=== PATIENT | male | born 1970 | race Caucasian/White ===

== ENCOUNTER 2018-08-19 13:23 | Observation (INO) | payer OTHER ==
[~2018-08-19] VITALS: Ht 180.3 cm; Wt 118.8 kg
--- NOTE | ~2018-08-19 | O ---
[facility] [place] [address] OPERATIVE REPORT Name: NATALIE LEIGH Room #: 431-P [facility] M..#: [id number] Admission: 08/19/18 ������������������ Attend Phys: Clemente Downey MD Discharge: ������������������ Date of : 72 Report #: [id number] THIS REPORT FOR: //name// CC: ZULEIKA Downey DATE OF SERVICE: 08/19/2018 PREOPERATIVE DIAGNOSIS: Cholecystitis with cholelithiasis. POSTOPERATIVE DIAGNOSIS: Cholecystitis with cholelithiasis. Stone stuck in the cystic duct. PROCEDURE PERFORMED: Laparoscopic cholecystectomy with intraoperative cholangiogram. SURGEON: Clemente Downey M.D. ANESTHESIA: General anesthesia. COMPLICATIONS: None. ESTIMATED BLOOD LOSS: 5 mL FINDINGS: There was a small stone within the cystic duct. Common bile duct does not show any obvious stone. Gallbladder shows mild edema and it is decompressed. Multiple stones found in the gallbladder. DESCRIPTION OF PROCEDURE: With the patient under general anesthesia, abdomen was prepped and draped in sterile fashion. IV antibiotic was administered. Timeout was performed. 0.25% Marcaine was used to anesthetize the skin and subcutaneous tissue. A curvilinear incision was made above the umbilicus. Fascia identified. Fascia was grasped with hemostat. Fascia was then opened under visualization. 0 Vicryl suture placed on the fascia edges. Veress needle was then placed through the peritoneum. Abdominal cavity was insufflated with CO2. After creating pneumoperitoneum pressure of 13, a 11 mm trocar was placed into the pneumoperitoneum. No harm to underlying tissue. Two 5 mm trocars were placed in the right upper quadrant and the third 5 mm trocar was placed in the right epigastrium. The patient was tilted with the right side up and head down. The appendix was found and it was not inflamed. The patient was then placed in the reverse Trendelenburg position. Gallbladder was identified as the CT showed the gallbladder was decompressed. There is quite a bit of fat over the proximal part of the gallbladder. Common bile duct was also obscured by fat. Dissection was carried through the fat tissue. The cystic duct was then isolated. The cystic duct was mildly dilated. The cystic duct to the gallbladder junction was [facility] [address] [place] [address] OPERATIVE REPORT Name: NATALIE LEIGH Room #: 431-P [facility] M.R.#: [id number] Admission: 08/19/18 ������������������ Attend Phys: Clemente Downey MD Discharge: ������������������ Date of : 72 Report #: [id number] visualized. A clip was placed in the cystic duct gallbladder junction. Opening was made in the cystic duct. After the opening was made, there was a stone identified in the cystic duct and this was milked out and about 2-3 mm size stone was removed. Then, there was another smaller piece of stone that was also evacuated. With further dissecting and squeezing the cystic duct, I did not get any further stone out, really not much bile came out either. Cholangiogram catheter was then placed. I was only able to get the tip of the catheter in the cystic duct. This was held with a clip. Fluoroscopic cholangiogram was obtained. Initial run did show good filling of the common bile duct and a little bit of the common hepatic duct was visualized. The patient did have some extravasation at the cannulation site. There was also dye spillage in the duodenum. A repeat injection was performed at this time with the patient in a reverse Trendelenburg position. I was able to visualize partially the hepatic ducts. The anatomy appears to be normal without obvious filling defect. The contrast preferentially went down to the duodenum and lack of filling of the hepatic ducts. The cholangiogram catheter was identified in the cystic duct. No harm to common duct. The cholangiogram catheter was then removed. The proximal cystic duct was then clipped x 2. The cystic duct was then divided. Cystic artery was then identified. This was isolated, clipped x 2 proximally and distally and then divided. Small posterior branch was also found. This was clipped x 2 and then cauterized. Gallbladder was freed from the liver bed without difficulty. During the dissection of the gallbladder off the liver bed, there was mild edema in the gallbladder wall. Gallbladder was placed in a specimen bag, retrieved through the infraumbilical port. Multiple blackish stones, like the one that was in the cystic duct, were found. There was also small yellowish cholesterol material stones identified, also cholesterolosis. The specimen was sent to pathology. Irrigation was performed. Liver bed was hemostatic. Irrigation was aspirated out. CO2 was evacuated as much as possible. The fascia defect at the 11 mm trocar above the umbilicus was closed with mqyyeu-io-lvmht 0 Vicryl at the level of the fascia. Bqpxua-ax-hrtqn x 2 was performed. Skin was irrigated. Skin was closed with 5-0 PDS. Steri-Strip applied to all trocar sites. Band-Aid was used for dressing. The patient was awakened and taken to the recovery room. ��������������������������������������������� ���������������������������������������� By: ��������������������������������������������� 2223 0000 Clemente Downey MD /nt
[2018-08-19 11:58] LABS: ABSOLUTE NEUTROPHILS 5.2 thou/uL (1.4-8.2); BASOPHILS 0.9 % (0.0-2.0); HEMATOCRIT 44.5 % (42.0-52.0); HEMOGLOBIN 15.2 gm/dL (14.0-18.0); LYMPHOCYTES 35.2 % (24.0-44.0); MCH 30.8 pg (26.0-34.0); MCHC 34.2 g/dL (28.0-37.0); MCV 90.2 fL (80.0-100.0); MONOCYTES 7.2 % (1.0-8.0); PLATELET COUNT 324 thou/uL (150-400); POLYS 54.7 % (36.0-66.0); RBC 4.94 mil/uL (4.50-6.00); RDW 14.1 % (10.5-14.5); WBC 9.5 thou/uL (4.0-11.0)
[2018-08-19 12:13] LABS: ALBUMIN 3.9 g/dL (3.4-5.0); CALCIUM 10.2 mg/dL (8.5-10.1); CREATININE 0.9 mg/dL (0.7-1.3); POTASSIUM 4.4 mmol/L (3.5-5.1); TOTAL BILIRUBIN 0.4 mg/dL (<0.1-1.0); TOTAL PROTEIN 7.3 g/dL (6.4-8.2)
[2018-08-19 14:00] VITALS: BP 175/96
--- NOTE | 2018-08-19 18:47 | NUR ---
RECEIVED PT AROUND 1809 FROM PACU, PT IS A&0X4, ACCOMPANIED BY SPOUSE, FOUND 'MELISSA HOLLAND' FOR HIS 02, DOESN'T WEAR 02 AT HOME, ON 1/5L, RT TX, CPAP HS, HAS HIS OWN HERE AT HOSPITAL, ON CLEAR LIQUIDS, INGESTED W/O ANY UNTOWARD EFFECT, AMB INDEPENDENTLY. ENCOURAGED HIM TO USE CALL LIGHT FOR ANY NEEDS
[2018-08-19 20:00] VITALS: BP 158/92
[2018-08-19] MEDS ORDERED: LISINOPRIL40 MG PO (20:54)
[2018-08-19] MEDS ORDERED: LIPITOR80 MG PO (20:55)
[2018-08-19] MEDS ORDERED: NORTRIPTYLINE H50 MG PO (20:56)
[2018-08-19] MEDS ORDERED: ASPIR 8181 MG PO (20:57)
[2018-08-19] MEDS ORDERED: NORVASC10 MG PO (20:58)
[2018-08-19] MEDS ORDERED: FISH OIL 1,001000 M2 PO (20:59)
[2018-08-19] MEDS ORDERED: BRAIN MIGHT-DH1 EACH PO (21:00)
[2018-08-19] MEDS ORDERED: CENTRUM SILVER1 EAC2 PO (21:01)
[2018-08-19] MEDS ORDERED: GLUCOSAMINE HC500 MG PO (21:01)
[2018-08-19] MEDS ORDERED: COLACE100 MG PO (21:02)
[2018-08-20 06:00] VITALS: BP 178/88
[2018-08-20 09:02] VITALS: BP 159/79
[2018-08-20] MEDS ORDERED: PERCOCET PO (13:10)
[2018-08-20 13:58] VITALS: BP 159/79
--- NOTE | 2018-08-22 12:07 | PATH ---
[facility] [place] [address] [place] [address] PATHOLOGY RPT PROCEDURE Name: NATALIE LEIGH Room #: 431-P [facility] Dawna M.RHillary#: [id number] ������������������ Admission: 08/19/18 ������������������ Date of : 72 Discharge: 08/20/18 Report #: [id number] Path Case #: [id number] [facility] Accession Number: [id number] . 01 Material submitted: . BOAZ . 01 Clinical history: . Cholecystitis with cholelithiasis . 02 Diagnosis: Gallbladder, cholecystectomy: - Mild chronic cholecystitis. - Cholelithiasis. - Numerous cholesterol polyps. - Negative for dysplasia or malignancy. (IUV:izabel; 08/21/2018) QMS/08/21/2018 . 02 Electronically signed: . Marianna Dillon MD, Pathologist NPI- [id number] . 01 Gross description: . Received in formalin labeled "Natalie Leigh, gallbladder," is a previously opened gallbladder measuring 7.1 x 3.5 x 1.6 cm in greatest dimensions. The serosal surface is pale yellow and completely adipose-covered in appearance. The mucosal surface is granular and green-cyr in appearance, measuring 0.1 cm in thickness with a gallbladder wall thickness of up to 0.8 cm including attached adipose tissue. Multiple cyr, polypoid structures are noted on the mucosal surface, ranging from less than 0.1 to 0.2 cm in maximum dimension and extending to within 0.7 cm of the infundibulum. Calculi are present within the specimen container that are granular and dark green-black in appearance, ranging from 0.1 to 0.5 cm in maximum dimension. Cook Manager sections of the infundibulum, body and fundus are submitted in cassette A1, to representatively include the aforementioned mucosal polypoid structures. (DAC; 08/20/2018) XDC/XDC . 02 Pathologist provided ICD-10: K80.10 . 02 CPT . 614839 Specimen Comment: A courtesy copy of this report has been sent to Specimen Comment: [phone], [place] [address] PATHOLOGY RPT PROCEDURE Name: NATALIE LEIGH A Room #: 431-P [facility] M.R.#: [id number] ������������������ Admission: 08/19/18 ������������������ Date of : 72 Discharge: 08/20/18 Report #: [id number] Path Case #: [id number] Specimen Comment: Report sent to / DR COPELAND Specimen Comment: A duplicate report has been generated due to demographic updates. Performed at: [address], [place] [id number] MD Kwaku Soto MD Phone: [phone] Performed at: [address] [id number] MD Marianna Dillon MD Phone: [phone]
== END 2018-08-20 15:36 | disposition home or self-care (01) ==
LOC: OR 13:23 → 4E 13:23 → TBA 13:23 → 4E 17:47 → OR 17:48 → 4E 17:48
PROVIDERS: ADMIT Surgery
DX: K80.10 Calculus of gallbladder with chronic cholecystitis without obstruction (principal); I10 Essential (primary) hypertension; I63.9 Cerebral infarction, unspecified; Z79.899 Other long term (current) drug therapy
CPT/HCPCS: 10783; 50010; 50101; 50411; 50555; 50558; 51489; 53307; 53310; 53312; 55245; 55317; 56462; 56525; 56526; 62110; 62900; 70005